=== PATIENT | female | born 1940 | race Caucasian/White ===

== ENCOUNTER 2016-10-24 14:14 | Inpatient (IN) | payer MEDICARE ==
[2016-10-24] MEDS ORDERED: Dextrose 5% in Water 1,000 ML IV PRN (15:26)
[2016-10-24] MEDS ORDERED: Dextrose 50% Abboject 50 ML SYRINGE IVP PRN (15:27)
[2016-10-24] MEDS: Acetaminophen/Codeine 30-300mg Tablet PO PRN ×2 (15:36→21:55)
[2016-10-24] MEDS: HumaLOG 300 UNITS/3 ML VIAL SC PRN (16:54)
[2016-10-24] MEDS ORDERED: Cyclobenzaprine 10 MG TAB PO PRN (20:44)
[2016-10-24] MEDS ORDERED: Ondansetron ODT 4 MG TAB PO PRN (20:44)
[2016-10-24] MEDS ORDERED: Acetaminophen 325 MG TAB PO PRN (20:47)
[2016-10-24] MEDS: Colchicine 0.6 MG TAB PO SCH (21:54)
[2016-10-24] MEDS: Atorvastatin Calcium 10 MG TAB PO SCH (21:57)
[2016-10-25] MEDS: Colchicine 0.6 MG TAB PO SCH (08:50)
[2016-10-25] MEDS: Levemir Flexpen 100 UNITS/ML PEN SC SCH (08:50)
[2016-10-25] MEDS: Aspirin 81 mg Enteric Coated Tablet PO SCH (08:50)
[2016-10-25] MEDS: Triamterene/Hydrochlorothiazide 37.5 mg/25 mg Tablet PO SCH (08:51)
[2016-10-25] MEDS: Loratadine 10 MG TAB PO SCH (08:51)
[2016-10-25] MEDS: Verapamil SR 120 MG TAB PO SCH (08:51)
[2016-10-25] MEDS: Docusate 100 MG CAP PO PRN ×2 (09:01→20:53)
[2016-10-25] MEDS: Acetaminophen/Codeine 30-300mg Tablet PO PRN ×2 (09:37→18:09)
[2016-10-25] MEDS ORDERED: Bisacodyl 10 MG SUPP PR PRN (10:40)
[2016-10-25] MEDS: HumaLOG 300 UNITS/3 ML VIAL SC PRN (12:18)
--- NOTE | 2016-10-25 13:41 | HP ---
DATE OF ADMISSION: 10/24/2016 CHIEF COMPLAINT: Intractable pain and generalized weakness. HISTORY OF PRESENT ILLNESS: This is a 75-year-old female with history of osteoarthritis, hypertension, and type 2 diabetes that was admitted to [facility] on 10/21/2016 with complaint of back pain and weakness. According to the patient and her family prior to this hospitalization in [place], the patient was living independently, very active and completely independent on ADLs. Other than a recent UTI and adverse drug reaction to Bactrim, patient had no inciting events leading up to her hospitalization. On admission, they did a thoracic spine MRI that indicated mild degenerative changes in the thoracic spine, but otherwise unremarkable. RIght knee xray was done that showed a small joint effusion on the right with degenerative arthritis and mild medial compartment narrowing. Dr. Mustafa was consulted due to right flank pain. She underwent an abdominal ultrasound that indicated biliary sludge, but no indication of cholecystitis. Per the family, the patient also had a recent CT scan done of her abdomen prior to admission for evaluation of this urinary tract infection and possible kidney stones that was also normal. Laboratory workup while she is in the hospital did indicate an elevated CRP of 24 and an elevated uric acid 7.5, ESR was elevated at 96. The patient was started on colchicine b.i.d. as well as Flexeril and Tylenol #3 which has resulted in moderate control of her pain. Neurosurgery evaluated her and did not feel that she was a surgical candidate or that her pain was likely coming from the thoracic degenerative changes. Decision was made to discharge her to [facility] for skilled rehabilitation due to her profound weakness and continued pain status post this hospitalization. The patient today reports she is still having spasms in her lower back as well as pain in both hands and both knees, predominantly in the right knee and the left hand although her main complaint today is constipation. She reports she has not had a bowel movement since Wednesday and she is requesting a laxative or a suppository. She reports still feeling very weak that she is unable to even stand up from the commode and that does represent a significant decline from her baseline two weeks ago. Per the patient, she has no history of gout that she was aware of in the past, but did know that she had arthritis. She does not drink etoh. She is on diuretics for HTN. PAST MEDICAL HISTORY: 1. Hypertension. 2. Hyperlipidemia. 3. Osteoarthritis. 4. Type 2 diabetes. MEDICATIONS: 1. Tylenol #3 1-2 tabs every 6 hrs PRN 2. ASA 81 mg QD 3. Cetirizine 10 mg QD 4. Flexeril 10mg TID PRN 5. Lantus 25 units qAM 6. Zocor 20 mg qHS 7. Triamterene-HCTZ 37.5/25 mg QD 8. Verapamil ER 180mg QD 9. Metformin 1500 mg BID 10. Colchicine 0.6 mg BID FAMILY HISTORY: Significant for heart disease in her family, but otherwise noncontributory. SOCIAL HISTORY: The patient denies any tobacco, alcohol or illicit drug use. She lives independently. She has expressed wishes to be DNR and is wanting a hospital DNR paperwork. ALLERGIES: SULFAMETHOXAZOLE and TRAMADOL. REVIEW OF SYSTEMS: General: Denies any fever, chills, weight gain, weight loss. HEENT: Denies any headache, sore throat, runny nose or tinnitus. Cardiovascular: Denies any chest pain, palpitations. Respiratory: Denies any shortness of breath, cough or wheezing. Gastrointestinal: Positive for constipation. Denies any blood in her stools. Denies any abdominal pain. Genitourinary: Denies any dysuria, hematuria, frequency or urgency. Extremities: Positive for joint pain and difficulty walking. Positive for joint swelling. Neurologic: Denies any syncope, seizures. Hematology/Oncology : Denies any easy bleeding or easy bruising. PHYSICAL EXAMINATION: VITAL SIGNS: Temperature is 99.2, blood pressure is 169/75, heart rate is 85, respirations 15, O2 saturation 94% on room air. GENERAL: She is alert and oriented x3, sitting up in bed comfortably in no apparent distress. She is calm and cooperative. HEENT: Pupils are equally round and reactive to light. Extraocular movements are intact. Oropharynx is moist without erythema or exudates. NECK: Supple, without lymphadenopathy, thyromegaly or carotid bruits. CARDIOVASCULAR: Heart has regular rate and rhythm with no murmurs. Negative for peripheral edema. RESPIRATORY: Lungs are clear to auscultation bilaterally. No wheezing, rales or rhonchi. ABDOMEN: Soft, nontender, nondistended with normoactive bowel sounds. BACK AND EXTREMITIES: Positive for mid thoracic paraspinal muscle tenderness to palpation. Positive for right first MCP swelling and tenderness to palpation. Positive for left hand mild swelling. Positive for right knee swelling with mild effusion and tenderness to palpation. Left knee is mildly swollen as well without effusion that is positive for tenderness to palpation. The patient's strength is 4-5/5 in all 4 extremities. I was unable to get her up to ambulate due to her pain and weakness at this time. NEUROLOGIC: Cranial nerves II through XII are grossly intact. Negative for any gross deficits. LABS AND IMAGING: No new labs have been done since the patient was admitted here, but while she was in [facility], her CBC indicated on 10/22/2016, white blood cells are 7.6, hemoglobin is 10.2, hematocrit 29.5, platelets 400. ESR 96. Metabolic panel on 10/22/2016 with sodium of 135, potassium 3.7, chloride 100, carbon dioxide 24, BUN 23, creatinine 0.90, glucose 153, GFR 61, calcium is 9.1. Liver function tests are normal. Albumin is low at 2.9, uric acid at 7.5. CRP of 24.71. TSH 1.64. Blood and urine cultures are negative at 48 hours. Abdominal ultrasound done on 10/22/2016 indicated mild distention of the gallbladder with gallbladder sludge without overt sonographic evidence for acute cholecystitis. Thoracic spine MRI with mild degenerative changes in the thoracic spine. Knee x-ray on 10/21/2016 indicated small knee joint effusion with degenerative joint disease. Chest x- ray on 10/21/2016 showed chronic changes with mild increased linear interstitial density and some hyperinflation, but negative for any focal consolidation or alveolar edema. ASSESSMENT AND PLAN: 1. Generalized weakness. The patient will be admitted to [facility] for planned physical therapy and occupational therapy evaluations and treatment. The patient has shown a significant decline from her baseline. I suspect that the main cause of her weakness is likely attributed to her recent arthritis flare. We will continue with pain medications and schedule them to keep her pain under control while she is in the hospital. 2. Polyarthralgia, this seems to be multifactorial per the patient. She does have known osteoarthritis of multiple joints, but has not had significant issues with this prior to 2 weeks ago. She additionally was found to have an elevated uric acid while in the hospital and has been treated for this with colchicine. Given the severity of her elevated inflammatory markers, I will check a rheumatoid factor and JC as well for further evaluation. I suspect that she will be able to be managed on an outpatient basis upon discharge with a pain management physician. 3. Hypertension. We will continue her on her home medications. 4. Hyperlipidemia. She will be continued on her home medication. 5. Type 2 diabetes. She will be continued on her home insulin regimen with a.c. and at bedtime blood sugar checks. 6. Constipation. We will start the patient on laxative and suppository as needed and continue her on her stool softener. Encourage high fiber diet. DISPOSITION: Anticipate the patient requiring at least 1-2 weeks for inpatient physical therapy and occupational therapy prior to being able to return to independent living. She will likely benefit from some continued home health care with physical therapy upon discharge. CODE STATUS: DNR per her wishes. DVT prophylaxis is not indicated at this time. MTDD
[2016-10-25] MEDS: Atorvastatin Calcium 10 MG TAB PO SCH (20:53)
[2016-10-25] MEDS: Naproxen 500 MG TAB PO SCH (20:54)
[2016-10-25] MEDS: Cyclobenzaprine 10 MG TAB PO SCH (20:54)
[2016-10-26] MEDS: Verapamil SR 120 MG TAB PO SCH (09:02)
[2016-10-26] MEDS: Aspirin 81 mg Enteric Coated Tablet PO SCH (09:02)
[2016-10-26] MEDS: Triamterene/Hydrochlorothiazide 37.5 mg/25 mg Tablet PO SCH (09:02)
[2016-10-26] MEDS: Cyclobenzaprine 10 MG TAB PO SCH ×2 (09:02→20:37)
[2016-10-26] MEDS: Levemir Flexpen 100 UNITS/ML PEN SC SCH (09:03)
[2016-10-26] MEDS: Naproxen 500 MG TAB PO SCH ×2 (09:03→20:37)
[2016-10-26] MEDS: Loratadine 10 MG TAB PO SCH (09:03)
[2016-10-26] MEDS: Docusate 100 MG CAP PO PRN (09:06)
[2016-10-26] MEDS: Milk Of Magnesia 30 ML UDCUP PO PRN (09:06)
[2016-10-26] MEDS: HumaLOG 300 UNITS/3 ML VIAL SC PRN ×3 (09:10→17:17)
[2016-10-27 04:19] VITALS: BMI 23.1
[2016-10-27] MEDS: Triamterene/Hydrochlorothiazide 37.5 mg/25 mg Tablet PO SCH (08:23)
[2016-10-27] MEDS: Verapamil SR 120 MG TAB PO SCH (08:24)
[2016-10-27] MEDS: Naproxen 500 MG TAB PO SCH ×2 (08:24→20:26)
[2016-10-27] MEDS: Aspirin 81 mg Enteric Coated Tablet PO SCH (08:24)
[2016-10-27] MEDS: Loratadine 10 MG TAB PO SCH (08:24)
[2016-10-27] MEDS: Docusate 100 MG CAP PO PRN (08:24)
[2016-10-27] MEDS: Cyclobenzaprine 10 MG TAB PO SCH ×2 (08:25→20:26)
[2016-10-27] MEDS: HumaLOG 300 UNITS/3 ML VIAL SC PRN (08:25)
[2016-10-27] MEDS: Levemir Flexpen 100 UNITS/ML PEN SC SCH (08:25)
[2016-10-27] MEDS: Milk Of Magnesia 30 ML UDCUP PO PRN (08:26)
[2016-10-27] MEDS ORDERED: Hydrocortisone Acetate 25 MG Suppository PR PRN (13:54)
[2016-10-28 08:23] LABS: Antinuclear AB Negative (Negative)
[2016-10-28] MEDS: Verapamil SR 120 MG TAB PO SCH (08:35)
[2016-10-28] MEDS: Aspirin 81 mg Enteric Coated Tablet PO SCH (08:36)
[2016-10-28] MEDS: Cyclobenzaprine 10 MG TAB PO SCH ×2 (08:36→21:22)
[2016-10-28] MEDS: Triamterene/Hydrochlorothiazide 37.5 mg/25 mg Tablet PO SCH (08:36)
[2016-10-28] MEDS: Loratadine 10 MG TAB PO SCH (08:36)
[2016-10-28] MEDS: Naproxen 500 MG TAB PO SCH ×2 (08:37→21:22)
[2016-10-28] MEDS: Levemir Flexpen 100 UNITS/ML PEN SC SCH (08:37)
[2016-10-28] MEDS: HumaLOG 300 UNITS/3 ML VIAL SC PRN ×2 (08:38→12:41)
[2016-10-28] MEDS: Acetaminophen/Codeine 30-300mg Tablet PO PRN (21:28)
[2016-10-29] MEDS: Triamterene/Hydrochlorothiazide 37.5 mg/25 mg Tablet PO SCH (09:16)
[2016-10-29] MEDS: Cyclobenzaprine 10 MG TAB PO SCH ×2 (09:16→20:40)
[2016-10-29] MEDS: Naproxen 500 MG TAB PO SCH ×2 (09:17→20:40)
[2016-10-29] MEDS: Levemir Flexpen 100 UNITS/ML PEN SC SCH (09:17)
[2016-10-29] MEDS: Verapamil SR 120 MG TAB PO SCH (09:17)
[2016-10-29] MEDS: Aspirin 81 mg Enteric Coated Tablet PO SCH (09:17)
[2016-10-29] MEDS: Loratadine 10 MG TAB PO SCH (09:17)
[2016-10-29] MEDS: HumaLOG 300 UNITS/3 ML VIAL SC PRN ×2 (12:03→17:08)
[2016-10-29] MEDS: Milk Of Magnesia 30 ML UDCUP PO PRN (20:40)
[2016-10-30] MEDS: Acetaminophen/Codeine 30-300mg Tablet PO PRN (07:50)
[2016-10-30] MEDS: Cyclobenzaprine 10 MG TAB PO SCH ×2 (08:54→20:33)
[2016-10-30] MEDS: Triamterene/Hydrochlorothiazide 37.5 mg/25 mg Tablet PO SCH (08:54)
[2016-10-30] MEDS: Aspirin 81 mg Enteric Coated Tablet PO SCH (08:54)
[2016-10-30] MEDS: Verapamil SR 120 MG TAB PO SCH (08:54)
[2016-10-30] MEDS: Naproxen 500 MG TAB PO SCH ×2 (08:55→20:33)
[2016-10-30] MEDS: Loratadine 10 MG TAB PO SCH (08:55)
[2016-10-30] MEDS: Docusate 100 MG CAP PO PRN (08:55)
[2016-10-30] MEDS: Levemir Flexpen 100 UNITS/ML PEN SC SCH (08:57)
[2016-10-30] MEDS: Milk Of Magnesia 30 ML UDCUP PO PRN (08:57)
[2016-10-30] MEDS: HumaLOG 300 UNITS/3 ML VIAL SC PRN (17:20)
[2016-10-30] MEDS: Docusate 100 MG CAP PO SCH (20:33)
[2016-10-31] MEDS: Acetaminophen/Codeine 30-300mg Tablet PO PRN (01:53)
[2016-10-31] MEDS: Verapamil SR 120 MG TAB PO SCH (08:36)
[2016-10-31] MEDS: Cyclobenzaprine 10 MG TAB PO SCH ×2 (08:37→20:39)
[2016-10-31] MEDS: Triamterene/Hydrochlorothiazide 37.5 mg/25 mg Tablet PO SCH (08:37)
[2016-10-31] MEDS: Loratadine 10 MG TAB PO SCH (08:37)
[2016-10-31] MEDS: Aspirin 81 mg Enteric Coated Tablet PO SCH (08:37)
[2016-10-31] MEDS: Naproxen 500 MG TAB PO SCH ×2 (08:37→20:41)
[2016-10-31] MEDS: Docusate 100 MG CAP PO SCH ×2 (08:37→20:38)
[2016-10-31] MEDS: Levemir Flexpen 100 UNITS/ML PEN SC SCH (08:38)
[2016-11-01] MEDS: Naproxen 500 MG TAB PO SCH ×2 (08:10→20:31)
[2016-11-01] MEDS: Verapamil SR 120 MG TAB PO SCH (08:10)
[2016-11-01] MEDS: Loratadine 10 MG TAB PO SCH (08:11)
[2016-11-01] MEDS: Levemir Flexpen 100 UNITS/ML PEN SC SCH (08:11)
[2016-11-01] MEDS: Docusate 100 MG CAP PO SCH ×2 (08:11→20:31)
[2016-11-01] MEDS: Aspirin 81 mg Enteric Coated Tablet PO SCH (08:11)
[2016-11-01] MEDS: Cyclobenzaprine 10 MG TAB PO SCH ×2 (08:11→20:31)
[2016-11-01] MEDS: Triamterene/Hydrochlorothiazide 37.5 mg/25 mg Tablet PO SCH (08:12)
[2016-11-02] MEDS: Acetaminophen/Codeine 30-300mg Tablet PO PRN (03:05)
[2016-11-02 09:20] VITALS: BP 131/63; TEMP 97
[2016-11-02] MEDS: Cyclobenzaprine 10 MG TAB PO SCH (09:26)
[2016-11-02] MEDS: Naproxen 500 MG TAB PO SCH (09:26)
[2016-11-02] MEDS: Aspirin 81 mg Enteric Coated Tablet PO SCH (09:26)
[2016-11-02] MEDS: Docusate 100 MG CAP PO SCH (09:26)
[2016-11-02] MEDS: Verapamil SR 120 MG TAB PO SCH (09:26)
[2016-11-02] MEDS: Loratadine 10 MG TAB PO SCH (09:27)
[2016-11-02] MEDS: Triamterene/Hydrochlorothiazide 37.5 mg/25 mg Tablet PO SCH (09:27)
[2016-11-02] MEDS: Levemir Flexpen 100 UNITS/ML PEN SC SCH (09:29)
[2016-11-02] MEDS: Milk Of Magnesia 30 ML UDCUP PO PRN (09:32)
--- NOTE | 2016-11-02 21:15 | DIS ---
DATE OF ADMISSION: 10/24/2016 DATE OF DISCHARGE: 11/02/2016 PRIMARY DIAGNOSIS: Generalized weakness. SECONDARY DIAGNOSES: 1. Polyarthralgia 2. Constipation. 3. Hypertension. 4. Hyperlipidemia. 5. Diabetes mellitus type 2. 6. Hyperuricemia. HOSPITAL COURSE: This is a pleasant 75-year-old female that was admitted on 10/24/2016 after hospitalization at [facility] from 10/21/2016-10/24/2016. The patient was admitted there with chief complaint of back pain and generalized weakness. She underwent radiologic evaluation of her pain including a thoracic spine MRI that showed mild degenerative changes in her thoracic spine as well as a right knee x-ray that showed a small joint effusion with degenerative arthritis of mild medial compartment narrowing. Prior to her hospitalization, patient had been complaining of right flank pain and side pain. She at that time underwent an abdominal ultrasound that showed biliary sludge, but no evidence of cholelithiasis or acute cholecystitis. The patient had an elevated CRP of 24 and ESR of 96 as well as an elevated uric acid of 7.5. The patient was started on pain medication while in the hospital and seen by Neurosurgery, who did not feel that she was a surgical candidate and could be better managed by pain management physician. Due to her generalized weakness and difficulty with ADLs , she was transferred to our facility for inpatient physical therapy and occupational therapy. Upon admission, the patient was taken off the colchicine and started on naproxen, which helped tremendously with her pain and joint inflammation. She has done remarkably well with physical therapy and occupational therapy and is now ambulating with a walker without any issues and pain has been well controlled. She is able to get up from a seated position without any difficulty or assistance and is now back to being independent on her ADLs and therefore ready for discharge. During her hospitalization, she did have some issues with constipation and she was started on a bowel regimen and subsequently this is resolved after multiple doses of Dulcolax, Colace, Milk of Magnesia, and lactulose. DISCHARGE MEDICATIONS UPON DISCHARGE: 1. Colace 100 mg twice daily p.r.n. 2. Aspirin 81 mg once daily. 3. Zyrtec 10 mg once daily. 4. Cyclobenzaprine 10 mg twice daily as needed. 5. Levemir 25 units q.a.m. 6. Naproxen 500 mg twice daily as needed. 7. Triamterene-hydrochlorothiazide 37.5/25 mg 1 capsule daily. 8. Verapamil 180 mg once daily. 9. Metformin 1000 mg twice daily. 10. Tylenol #3 of 300/30 mg every 6 hours as needed. DIET: Upon discharge, continue diabetic diet. DISPOSITION: Patient will be discharged to home with home health care and physical therapy to be continued with standard home healthcare agency. She will use a walker for gait stabilization and follow up with me in [facility] in 2 weeks. DIVINA
== END 2016-11-02 14:00 | disposition home health service (06) | DRG 948 ==
LOC: MADMS 14:14
PROVIDERS: ADMIT Family Medicine; ATTEND Family Medicine
DX: R53.1 Weakness (principal); E11.9 Type 2 diabetes mellitus without complications; I10 Essential (primary) hypertension; M25.50 Pain in unspecified joint; Z79.4 Long term (current) use of insulin; Z79.84 Long term (current) use of oral hypoglycemic drugs; E78.5 Hyperlipidemia, unspecified; K59.00 Constipation, unspecified; E79.0 Hyperuricemia without signs of inflammatory arthritis and tophaceous disease; M17.11 Unilateral primary osteoarthritis, right knee; M25.461 Effusion, right knee; M54.9 Dorsalgia, unspecified
CPT/HCPCS: 36416; 86038; 86430; J1815